=== PATIENT | female | born 1995 | race Caucasian/White ===

== ENCOUNTER → 2016-11-17 | Outpatient (CLI) | payer OTHER | END | disposition home or self-care (01) | LOC: C.LAB 01:54 | DX: Z02.83 Encounter for blood-alcohol and blood-drug test (principal) ==

== ENCOUNTER → 2017-03-11 | Outpatient (CLI) | payer OTHER ==
--- NOTE | 2017-03-11 09:34 | DIAGNOSTIC IMAGING REPORT ---
RIGHT FOOT MIN 3 VIEWS, RIGHT ANKLE MIN 3 VIEWS HISTORY: 21 years Female RIGHT ANKLE AND FOOT PAIN Right COMPARISON: None available TECHNIQUE: 3 views of the right foot and 3 views of the right ankle FINDINGS: FOOT: There are 2 radiopaque foci on the frontal view measuring up to 3 mm which on the lateral view appear to project on the skin service along the plantar aspect of the foot. There is moderate medial midfoot and forefoot soft tissue swelling with ankle soft tissue swelling also noted. Distal portions of the first and second digits are not included on the study on the frontal view. No acute fracture, dislocation or significant degenerative changes. ANKLE: Ankle mortise is well maintained and anatomically positioned. Talar dome is smooth without osteochondral defect identified. No acute fracture or dislocation. There is mild spurring of the anterior talus. Mild circumferential soft tissue swelling is seen about the ankle. IMPRESSION: 1. Mild soft tissue swelling about the ankle and medial foot without acute fracture or dislocation identified. 2. Two radiopaque foci measuring up to 3 mm on the frontal view are likely on the skin surface. Correlate clinically to exclude foreign bodies. The above report was generated using voice recognition software. It may contain grammatical, syntax or spelling errors. Electronically signed by: Prabhjot Heaton M.D. 03/11/2017 9:33 AM Dictated Date/Time: 03/11/2017 9:29 AM
== END | disposition home or self-care (01) ==
LOC: C.RDSM 08:22
PROVIDERS: ATTEND Internal Medicine
DX: M25.571 Pain in right ankle and joints of right foot (principal); M79.671 Pain in right foot

== ENCOUNTER → 2017-04-02 | Outpatient (CLI) | payer OTHER ==
--- NOTE | 2017-04-02 11:33 | DIAGNOSTIC IMAGING REPORT ---
LEFT SHOULDER MIN 2 VIEWS CLINICAL HISTORY: LEFT SHOULDER PAIN pain COMPARISON: None. DISCUSSION: The bones and joint spaces appear intact. There is no evidence of fracture, dislocation or bony disease. There is no evidence for soft tissue swelling. IMPRESSION: Negative study. The above report was generated using voice recognition software. It may contain grammatical, syntax or spelling errors. Electronically signed by: Brian Foley M.D. 04/02/2017 11:32 AM Dictated Date/Time: 04/02/2017 11:32 AM
== END | disposition home or self-care (01) ==
LOC: C.RDSM 11:41
PROVIDERS: ATTEND Internal Medicine
DX: M25.512 Pain in left shoulder (principal)